=== PATIENT | male | born 1940 | race Caucasian/White ===

== ENCOUNTER → 2017-02-17 | Outpatient (CLI) | payer OTHER ==
[~2017-02-17] MED LIST: ADULT LOW DOSE81 MG PO; ALTACE5 M1 PO; BYSTOLIC 5 MG5 M1 PO; IBUPROFEN 200200 M1 PO; ISOSORBIDE MONO30 M1 PO; LIPITOR40 MG PO; NIASPAN 500 MG500 M1 PO; PLAVIX 75 MG TA75 M1 PO; RANEXA 500 MG500 M1 PO; SIMVASTATIN80 MG PO; VYTORIN 10-401 EACH PO
== END ==
LOC: RAD 13:00
DX: M25.512 Pain in left shoulder (principal); R07.9 Chest pain, unspecified